=== PATIENT | male | born 1975 | race Caucasian/White ===

== ENCOUNTER 2022-03-26 16:18 | Emergency (ER) | payer OTHER ==
[2022-03-26] MEDS ORDERED: NA CHLORIDE 0.9% 1,000 ML ONE (16:54)
[2022-03-26] MEDS ORDERED: FENTANYL CITR 100 MCG/2 ML ONE (16:54)
[2022-03-26] MEDS ORDERED: ONDANSETRON 4 MG/2 ML VIAL ONE (16:54)
--- NOTE | 2022-03-26 17:36 | RAD REPORT ---
EXAM DESCRIPTION: CT - Spine Lumbar Wo Con - 03/26/2022 5:11 pm CLINICAL HISTORY: Lumbar radiculopathy, trauma COMPARISON: None. TECHNIQUE: Thin section axial imaging of the lumbar spine was performed from T10-mid S2. Sagittal a nd coronal reconstruction images were generated and reviewed. All CT scans are performed using dose optimization technique as appropriate and may include automated exposure control or mA/KV adjustment according to patient size. FINDINGS: T10-T12 bodies show no acute findings. Incidental note of hemangioma in the T11 body. No c entral canal abnormality at these 3 levels. L1 burst fracture is present. There is comminuted fracture of the body of L1. There is a 20 x 15 x 15 millimeter free fracture fragment from the posterosuperior wall of L1 that projects into the central canal causing central spinal stenosis down to 5 mm. Fracture lines are present the verteb ral body from each pedicle. Fracture lines are primarily horizontal in the upper L1 body with a sagit allen midline fracture fragment extending to the inferior L1 endplate. Overall body height is compresse d 40%. Midline sagittally oriented fracture is present in the L1 spinous process extending into the right-si de lamina. No paraspinal soft tissue mass or hematoma around L1. L2-L5 vertebrae are normal in height and alignment. No additional fracture lines are seen. Patient child s L5 spondylolysis without spondylolisthesis. This is not an acute component. No spinal stenosis or f oraminal encroachment in the L2-S1 region. Partially imaged sacral ala are intact. No acute SI joint finding. IMPRESSION: Unstable L1 burst fracture with 40% compression and a 20 x 15 x 15 mm free fracture frag ment extending into the central canal causing significant spinal stenosis down to 5 mm. L1 fractures involve the body as detailed, bilateral body pedicle junctions, spinous process and righ t lamina.
[2022-03-26 17:51] LABS: Absolute Lymphocytes (CBC) 1.3 K/uL (0.7-4.9); Hematocrit 48.8 % (39.6-49.0); MPV 7.9 fL (7.6-11.3); RBC Red Blood Cell Count 5.15 M/uL (4.33-5.43)
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
[2022-03-26 18:09] LABS: Albumin 3.5 g/dL (3.4-5.0); Bilirubin Total 0.5 mg/dL (0.2-1.0); Potassium 3.6 mmol/L (3.5-5.1); Protein, Total 6.5 g/dL (6.4-8.2)
[2022-03-26 19:11] VITALS: TEMP 98.2
[2022-03-26 19:14] VITALS: BP 125/85; O2SAT 97
== END 2022-03-26 19:04 | disposition short-term general hospital (02) ==
LOC: ER 16:18
DX: S32.012A Unstable burst fracture of first lumbar vertebra, initial encounter for closed fracture (principal); Y93.17 Activity, water skiing and wake boarding; Z72.0 Tobacco use; Z20.822 Contact with and (suspected) exposure to COVID-19
CPT/HCPCS: 96361; 85025; 36415; 80053; 72131; 96375; 96374; 99285; U0003; J3010; J7030; J2405